=== PATIENT | female | born 1960 | race African-American/Black ===

== ENCOUNTER → 2016-12-16 | Outpatient (CLI) | payer BC ==
[2016-12-16 10:45] LABS: ABSOLUTE EOSINOPHILS # (AUTO) 0.3 10^3/uL (0.0-0.6); ABSOLUTE LYMPHOCYTES (AUTO) 2.4 10^3/uL (0.5-4.7); ABSOLUTE MONOCYTES (AUTO) 0.8 10^3/uL (0.1-1.4); ABSOLUTE NEUT (AUTO) 6.8 10^3/uL (1.7-8.2); BASOPHILS % (AUTO) 0.4 % (0-2); EOSINOPHILS % (AUTO) 2.5 % (0-6); HEMOGLOBIN 13.6 g/dL (12.0-15.5); HGB HCT DIFFERENCE 1.8; LYMPHOCYTES % (AUTO) 23.5 % (13-45); MEAN CORPUSCULAR HEMOGLOBIN 30.3 pg (27.0-33.4); MEAN CORPUSCULAR HGB CONC 34.8 g/dL (32.0-36.0); MEAN CORPUSCULAR VOLUME 87 fl (80-97); MONOCYTES % (AUTO) 7.4 % (3-13); RED BLOOD COUNT 4.48 10^6/uL (3.72-5.28); RED CELL DISTRIBUTION WIDTH 13.9 % (11.5-14.0); SEGMENTED NEUTROPHILS % (AUTO) 66.2 % (42-78); WHITE BLOOD COUNT 10.2 10^3/uL (4.0-10.5)
[2016-12-16 11:07] LABS: ALANINE AMINOTRANSFERASE 28 U/L (9-52); ALBUMIN 4.1 g/dL (3.5-5.0); ALKALINE PHOSPHATASE 78 U/L (38-126); ANION GAP 15 (5-19); ASPARTATE AMINO TRANSFERASE 22 U/L (14-36); BILIRUBIN,DIRECT 0.3 mg/dL (0.0-0.4); BILIRUBIN,TOTAL 0.7 mg/dL (0.2-1.3); BLOOD UREA NITROGEN 11 mg/dL (7-20); CALCIUM 9.2 mg/dL (8.4-10.2); CARBON DIOXIDE 25 mmol/L (22-30); CHLORIDE 109 mmol/L (98-107); CHOLESTEROL 124.23 mg/dL (0-200); CREATININE RESULT 0.58 mg/dL (0.52-1.25); Direct HDL 38 mg/dL (>40); GLUCOSE 101 mg/dL (75-110); MAGNESIUM 2.3 mg/dL (1.6-2.3); POTASSIUM 3.7 mmol/L (3.6-5.0); SODIUM 148.8 mmol/L (137-145); TOTAL PROTEIN 7.3 g/dL (6.3-8.2); TRIGLYCERIDES 85 mg/dL (<150)
[2016-12-16 11:21] LABS: DIRECT LDL 62 mg/dL (<100)
== END ==
LOC: OD 09:41
PROVIDERS: ATTEND Family Medicine
DX: E78.5 Hyperlipidemia, unspecified (principal); E87.6 Hypokalemia; Z79.899 Other long term (current) drug therapy; E55.9 Vitamin D deficiency, unspecified
CPT/HCPCS: 36415; 80053; 80061; 82306; 83735; 84443; 85025

== ENCOUNTER → 2017-06-19 | Outpatient (CLI) | payer BC ==
[2017-06-19 08:49] LABS: ABSOLUTE BASOPHILS # (AUTO) 0.1 10^3/uL (0.0-0.2); ABSOLUTE EOSINOPHILS # (AUTO) 0.2 10^3/uL (0.0-0.6); ABSOLUTE LYMPHOCYTES (AUTO) 2.9 10^3/uL (0.5-4.7); ABSOLUTE MONOCYTES (AUTO) 0.7 10^3/uL (0.1-1.4); ABSOLUTE NEUT (AUTO) 4.9 10^3/uL (1.7-8.2); EOSINOPHILS % (AUTO) 2.3 % (0-6); HEMATOCRIT 38.6 % (36.0-47.0); HEMOGLOBIN 13.3 g/dL (12.0-15.5); HGB HCT DIFFERENCE 1.3; LYMPHOCYTES % (AUTO) 32.5 % (13-45); MEAN CORPUSCULAR HEMOGLOBIN 30.1 pg (27.0-33.4); MEAN CORPUSCULAR HGB CONC 34.6 g/dL (32.0-36.0); MEAN CORPUSCULAR VOLUME 87 fl (80-97); MONOCYTES % (AUTO) 8.1 % (3-13); RED BLOOD COUNT 4.43 10^6/uL (3.72-5.28); RED CELL DISTRIBUTION WIDTH 13.9 % (11.5-14.0); SEGMENTED NEUTROPHILS % (AUTO) 56.1 % (42-78); WHITE BLOOD COUNT 8.8 10^3/uL (4.0-10.5)
[2017-06-19 09:09] LABS: ALANINE AMINOTRANSFERASE 31 U/L (9-52); ALBUMIN 4.2 g/dL (3.5-5.0); ALKALINE PHOSPHATASE 69 U/L (38-126); ANION GAP 11 (5-19); ASPARTATE AMINO TRANSFERASE 21 U/L (14-36); BILIRUBIN,DIRECT 0.3 mg/dL (0.0-0.4); BILIRUBIN,TOTAL 0.7 mg/dL (0.2-1.3); BLOOD UREA NITROGEN 17 mg/dL (7-20); CALCIUM 10.3 mg/dL (8.4-10.2); CARBON DIOXIDE 28 mmol/L (22-30); CHLORIDE 106 mmol/L (98-107); CREATININE RESULT 0.65 mg/dL (0.52-1.25); GLUCOSE 94 mg/dL (75-110); MAGNESIUM 1.8 mg/dL (1.6-2.3); POTASSIUM 4.1 mmol/L (3.6-5.0); SODIUM 144.5 mmol/L (137-145); TOTAL PROTEIN 7.3 g/dL (6.3-8.2)
== END ==
LOC: LAB 08:30
PROVIDERS: ATTEND Family Medicine
DX: E87.6 Hypokalemia (principal); E55.9 Vitamin D deficiency, unspecified; Z79.899 Other long term (current) drug therapy
CPT/HCPCS: 36415; 80053; 82306; 83735; 85025

== ENCOUNTER → 2017-08-07 | Outpatient (CLI) | payer BC ==
--- NOTE | 2017-08-07 10:25 | WOMENS IMAGING REPORT ---
EXAM DESCRIPTION: EMPLOYEE; BONE DENSITY HIP/SPINE COMPLETED DATE/TIME: 08/07/2017 8:41 am REASON FOR STUDY: AGE-RELATED OSTEOPROSIS; M81.0 E28.39 OTHER PRIMARY OVARIAN FAILURE M81.0 AGE-RE LATED OSTEOPOROSIS W/O CURRENT PATHOLOGICAL FRAC COMPARISON: 08/06/2015 TECHNIQUE: Dual-Energy X-ray Absorptiometry (DEXA) of the AP Spine and Hip. LIMITATIONS: None. FINDINGS: LUMBAR SPINE: The bone mineral density (BMD) measured from L1-L4 in the AP projection correlates with a T-score of -1.2, previously -1.5, which is osteopenia as defined by the World Health Organization. HIP: The bone mineral density (BMD) measured in the left hip correlates with a T-score of -1.6, previously -1.4, which is osteopenia as defined by the World Health Organization. IMPRESSION: 1. LUMBAR SPINE: OSTEOPENIA. 2. HIP: OSTEOPENIA. COMMENT: The World Health Organization defines low BMD as follows: T-score: Normal: Greater than -1.0 Osteopenia: Between -1.0 and -2.5 Osteoporosis: Less than -2.5 without fractures Established osteoporosis: Less than -2.5 with fractures In general, you may wish to consider: Diagnosis Treatment Follow-up DEXA Normal BMD Prevention 2-3 years Osteopenia Prevention/Therapy 1-2 years Osteoporosis Therapy Yearly TECHNICAL DOCUMENTATION: JOB ID: [id number] [employer]- All Rights Reserved
== END ==
LOC: WI 08:28
PROVIDERS: ATTEND Internal Medicine Hematology & Oncology
DX: E28.39 Other primary ovarian failure (principal); M81.0 Age-related osteoporosis without current pathological fracture
CPT/HCPCS: 77080

== ENCOUNTER → 2017-12-15 | Outpatient (CLI) | payer BC ==
[2017-12-15 09:27] LABS: ABSOLUTE EOSINOPHILS # (AUTO) 0.2 10^3/uL (0.0-0.6); ABSOLUTE LYMPHOCYTES (AUTO) 2.4 10^3/uL (0.5-4.7); ABSOLUTE MONOCYTES (AUTO) 0.7 10^3/uL (0.1-1.4); ABSOLUTE NEUT (AUTO) 4.7 10^3/uL (1.7-8.2); BASOPHILS % (AUTO) 0.5 % (0-2); EOSINOPHILS % (AUTO) 2.9 % (0-6); HEMATOCRIT 38.6 % (36.0-47.0); HEMOGLOBIN 13.1 g/dL (12.0-15.5); LYMPHOCYTES % (AUTO) 29.4 % (13-45); MEAN CORPUSCULAR HEMOGLOBIN 29.9 pg (27.0-33.4); MEAN CORPUSCULAR HGB CONC 33.9 g/dL (32.0-36.0); MEAN CORPUSCULAR VOLUME 88 fl (80-97); MONOCYTES % (AUTO) 9.1 % (3-13); PLATELET COUNT 355 10^3/uL (150-450); RED BLOOD COUNT 4.38 10^6/uL (3.72-5.28); RED CELL DISTRIBUTION WIDTH 13.9 % (11.5-14.0); SEGMENTED NEUTROPHILS % (AUTO) 58.1 % (42-78); TOTAL CELLS COUNTED % (AUTO) 100 %; WHITE BLOOD COUNT 8.2 10^3/uL (4.0-10.5)
[2017-12-15 09:48] LABS: ALANINE AMINOTRANSFERASE 43 U/L (9-52); ALBUMIN 4.2 g/dL (3.5-5.0); ALKALINE PHOSPHATASE 73 U/L (38-126); ANION GAP 10 (5-19); ASPARTATE AMINO TRANSFERASE 22 U/L (14-36); BILIRUBIN,DIRECT 0.1 mg/dL (0.0-0.4); BILIRUBIN,TOTAL 0.5 mg/dL (0.2-1.3); BLOOD UREA NITROGEN 16 mg/dL (7-20); CALCIUM 9.1 mg/dL (8.4-10.2); CARBON DIOXIDE 26 mmol/L (22-30); CHLORIDE 110 mmol/L (98-107); CHOLESTEROL 138.36 mg/dL (0-200); GLUCOSE 99 mg/dL (75-110); SODIUM 145.5 mmol/L (137-145); TRIGLYCERIDES 76 mg/dL (<150)
[2017-12-15 09:59] LABS: DIRECT LDL 76 mg/dL (<100)
[2017-12-16 05:40] LABS: HEPATITIS C VIRUS AB <0.1 s/co ratio (0.0-0.9)
== END ==
LOC: LAB 09:09
PROVIDERS: ATTEND Family Medicine
DX: E78.5 Hyperlipidemia, unspecified (principal); E87.6 Hypokalemia; Z79.899 Other long term (current) drug therapy; E55.9 Vitamin D deficiency, unspecified; Z11.59 Encounter for screening for other viral diseases
CPT/HCPCS: 36415; 80048; 80061; 80076; 82306; 83735; 84443; 85025; 86803; 86804

== ENCOUNTER → 2018-01-01 | Outpatient (CLI) | payer BC ==
--- NOTE | 2018-01-01 12:14 | RADIOLOGY REPORT (SQ) ---
EXAM DESCRIPTION: CHEST 2 VIEWS COMPLETED DATE/TIME: 01/01/2018 10:54 am REASON FOR STUDY: OTHER CHEST PAIN (R07.89) COMPARISON: 06/19/2013 EXAM PARAMETERS: NUMBER OF VIEWS: two views TECHNIQUE: Digital Frontal and Lateral radiographic views of the chest acquired. RADIATION DOSE: NA LIMITATIONS: none FINDINGS: LUNGS AND PLEURA: No opacities, masses or pneumothorax. No pleural effusion. MEDIASTINUM AND HILAR STRUCTURES: No masses or contour abnormalities. HEART AND VASCULAR STRUCTURES: Heart normal size. No evidence for failure. BONES: No acute findings. HARDWARE: None in the chest. OTHER: No other significant finding. IMPRESSION: NO ACUTE RADIOGRAPHIC FINDING IN THE CHEST. TECHNICAL DOCUMENTATION: JOB ID: [id number] [employer]- All Rights Reserved Reading location - IP/workstation name: [email or web address]
--- NOTE | 2018-01-01 12:15 | RADIOLOGY REPORT (SQ) ---
EXAM DESCRIPTION: HUMERUS RIGHT COMPLETED DATE/TIME: 01/01/2018 10:54 am REASON FOR STUDY: PAIN IN RIGHT UPPER ARM (M79.621) R07.89 OTHER CHEST PAIN M79.621 PAIN IN RIGHT UPPER ARM COMPARISON: None. NUMBER OF VIEWS: Two views. TECHNIQUE: Two radiographic images were acquired of the right humerus to include elbow and shoulder in at least one projection. LIMITATIONS: None. FINDINGS: MINERALIZATION: Normal. BONES: No acute fracture or dislocation. No worrisome bone lesions. SOFT TISSUES: No obvious swelling or foreign body. OTHER: No other significant finding. IMPRESSION: NEGATIVE STUDY OF THE RIGHT HUMERUS. NO RADIOGRAPHIC EVIDENCE OF ACUTE INJURY. TECHNICAL DOCUMENTATION: JOB ID: [id number] [employer]- All Rights Reserved Reading location - IP/workstation name: [email or web address]
--- NOTE | 2018-01-01 12:15 | RADIOLOGY REPORT (SQ) ---
EXAM DESCRIPTION: RIBS RIGHT W/O PA CHEST COMPLETED DATE/TIME: 01/01/2018 10:54 am REASON FOR STUDY: OTHER CHEST PAIN (R07.89) R07.89 OTHER CHEST PAIN M79.621 PAIN IN RIGHT UPPER AR M COMPARISON: None. NUMBER OF VIEWS: Four views. TECHNIQUE: Images acquired of the right ribs in the area of focal concern. LIMITATIONS: None. FINDINGS: RIBS: No acute displaced fracture. No worrisome bone lesions. LUNGS: Limited exam. No obvious pneumothorax. No pleural effusion. OTHER: No other significant finding. IMPRESSION: NO ACUTE DISPLACED RIB FRACTURE. COMMENT: SITE OF TRAUMA/COMPLAINT MARKED/STAMP COMPLETED: NO. TECHNICAL DOCUMENTATION: JOB ID: [id number] [employer]- All Rights Reserved Reading location - IP/workstation name: [email or web address]
--- NOTE | 2018-01-01 12:18 | RADIOLOGY REPORT (SQ) ---
EXAM DESCRIPTION: SHOULDER RIGHT 2 OR MORE VIEWS COMPLETED DATE/TIME: 01/01/2018 10:54 am REASON FOR STUDY: PAIN IN RIGHT UPPER ARM (M79.621) R07.89 OTHER CHEST PAIN M79.621 PAIN IN RIGHT UPPER ARM COMPARISON: None. NUMBER OF VIEWS: Three views. TECHNIQUE: Internal rotation, external rotation, and Y view images acquired of the right shoulder. LIMITATIONS: None. FINDINGS: MINERALIZATION: Normal. BONES: No acute fracture or dislocation. No worrisome bone lesions. JOINTS: No dislocation. VISUALIZED LUNGS AND RIBS: No pneumothorax. No rib fracture. SOFT TISSUES: No radiopaque foreign body. OTHER: No other significant finding. IMPRESSION: NEGATIVE STUDY OF THE RIGHT SHOULDER. NO RADIOGRAPHIC EVIDENCE OF ACUTE INJURY. TECHNICAL DOCUMENTATION: JOB ID: [id number] [employer]- All Rights Reserved Reading location - IP/workstation name: [email or web address]
== END ==
LOC: RAD 10:00
PROVIDERS: ATTEND Family Medicine
DX: R07.89 Other chest pain (principal); M79.621 Pain in right upper arm
CPT/HCPCS: 71046

== ENCOUNTER 2018-02-10 11:59 | Emergency (ER) | payer BC ==
[2018-02-10 14:42] LABS: BACTERIA (WET MOUNT) 3+ BACTERIA SEEN; RBCS (WET MOUNT) NO RBCS SEEN; T.VAGINALIS (WET MOUNT) NO TRICHOMONAS SEEN; WBCS (WET MOUNT) FEW WBCS SEEN; YEAST (WET MOUNT) NO YEAST SEEN
[2018-02-10] MEDS ORDERED: FAMOTIDINE 20 MG TABLET PO ONE (15:22)
[2018-02-10] MEDS ORDERED: PREDNISONE 20 MG TABLET PO ONE (15:22)
--- NOTE | 2018-02-10 15:27 | ER Document Report ---
ED GI/ - General Chief Complaint: Vaginal Itching Stated Complaint: VAGINAL PAIN Time Seen by Provider: 02/10/18 13:31 Mode of Arrival: Ambulatory Information source: Patient Notes: 57-year-old female presents to ED for complaint of itching to the vaginal area plus total body itching. Patient is alert oriented speaking full sentences respirations regular and unlabored walks with a even steady gait. TRAVEL OUTSIDE OF THE [place] IN LAST 30 DAYS: No - HPI Patient complains to provider of: Other - Vaginal itching and irritation with itching to the arms and legs Onset: Other - We days ago Timing/Duration: Persistent Quality of pain: No pain - Itching Pain Level: Denies Vaginal bleeding (Compared to normal period): None Associated symptoms: Other - Vaginal itching and irritation as well as itching to the arms and legs Exacerbated by: Denies Relieved by: Denies Similar symptoms previously: No Recently seen / treated by doctor: No - Related Data Allergies/Adverse Reactions: codeine [Codeine] Allergy (Severe, Verified 02/10/18 12:00) N&V Past Medical History - General Information source: Patient - Social History Smoking Status: Current Every Day Smoker Cigarette use (# per day): Yes - 15 cig a day Chew tobacco use (# tins/day): No Smoking Education Provided: Yes - 4 min Frequency of alcohol use: Occasional Drug Abuse: None Occupation: [employer] Lives with: Alone Family History: Reviewed & Not Pertinent Patient has suicidal ideation: No Patient has homicidal ideation: No - Past Medical History Cardiac Medical History: Reports: Hx Hypertension - Dx 2010 Pulmonary Medical History: Reports: None EENT Medical History: Reports: None Neurological Medical History: Reports: None Endocrine Medical History: Reports: None Renal/ Medical History: Reports: None Malignancy Medical History: Reports: Hx Breast Cancer - right GI Medical History: Reports: None Musculoskeltal Medical History: Reports Hx Arthritis - Carpal tunnel syndrome oj wrists Skin Medical History: Reports None Psychiatric Medical History: Reports: None Traumatic Medical History: Reports: None Past Surgical History: Reports: Hx Mastectomy - right Review of Systems - Review of Systems Constitutional: No symptoms reported EENT: No symptoms reported Cardiovascular: No symptoms reported Respiratory: No symptoms reported Gastrointestinal: No symptoms reported Genitourinary: No symptoms reported Female Genitourinary: Other - Vaginal itching Musculoskeletal: No symptoms reported Skin: Other - Itching to arms legs and pelvic area Hematologic/Lymphatic: No symptoms reported Neurological/Psychological: No symptoms reported -: Yes All other systems reviewed and negative Physical Exam - Vital signs Vitals: Temp Pulse Resp BP Pulse Ox 98.6 F 64 16 121/66 96 02/10/18 12:10 02/10/18 12:10 02/10/18 12:10 02/10/18 12:10 02/10/18 12:10 Interpretation: Normal - General General appearance: Appears well, Alert - HEENT Head: Normocephalic, Atraumatic Eyes: Normal Pupils: PERRL - Respiratory Respiratory status: No respiratory distress Chest status: Nontender Breath sounds: Normal Chest palpation: Normal - Cardiovascular Rhythm: Regular Heart sounds: Normal auscultation Murmur: No - Abdominal Inspection: Normal Distension: No distension Bowel sounds: Normal Tenderness: Nontender Organomegaly: No organomegaly - Genitourinary External exam: Normal Speculum exam: Normal Vaginal bleeding: None Bimanuel exam: Normal - Back Back: Normal, Nontender - Extremities General upper extremity: Normal inspection, Nontender, Normal color, Normal ROM , Normal temperature General lower extremity: Normal inspection, Nontender, Normal color, Normal ROM , Normal temperature, Normal weight bearing. No: Bernadette's sign - Neurological Neuro grossly intact: Yes Cognition: Normal Orientation: AAOx4 War Coma Scale Eye Opening: Spontaneous War Coma Scale Verbal: Oriented War Coma Scale Motor: Obeys Commands War Coma Scale Total: 15 Speech: Normal Motor strength normal: LUE, RUE, LLE, RLE Sensory: Normal - Psychological Associated symptoms: Normal affect, Normal mood - Skin Skin Temperature: Warm Skin Moisture: Dry Skin Color: Normal Character of irregularity: Fine - Fine rash to arms legs patient complaining of itching to the vaginal area arms legs and pelvic area, Urticarial Course - Re-evaluation Re-evalutation: 02/10/18 15:39 Pelvic exam negative no discharge noted no rash. wet mount negative, patient continually scratching arms and legs. Patient treated with prednisone, Pepcid, and instructed on use of benadryl at home. 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 Patient sent home with prescription for benadryl and Pepcid. Patient verbalized understanding of patient instruction and agreement with treatment plan. GC and chlamydia test not returned on discharge, patient was offered Rocephin and azithromycin but stated she did not think there was any chance and would rather not have antibiotics. - Vital Signs Vital signs: Temp Pulse Resp BP Pulse Ox 98.6 F 64 16 121/66 96 02/10/18 12:10 02/10/18 12:10 02/10/18 12:10 02/10/18 12:10 02/10/18 12:10 Discharge - Discharge Clinical Impression: Vaginal irritation Allergic reaction Qualifiers: Encounter type: initial encounter Qualified Code(s): T78.40XA - Allergy, unspecified, initial encounter Condition: Stable Disposition: HOME, SELF-CARE Instructions: Stop Smoking ([facility]) Additional Instructions: ACUTE ALLERGIC REACTION: Your symptoms are due to an allergic reaction. Allergy can cause hives, swelling of the hands, feet, and face, hoarseness, and difficulty swallowing or breathing. It may be due to exposure to medication, animal dander, foods, infection, or insect bites. Medication is a common cause, even when prior use of this same medication caused no problems. Acute treatment may include adrenalin and antihistamines. Usually, the specific allergic agent can't be identified unless repeated episodes occur. Home treatment includes the following: (1) Stop any suspicious medications. This will be discussed with you. (2) Oral antihistamines for the next four to five days. Example, diphenhydramine (Benadryl) every four hours. (3) You may also use cimetidine (Tagamet), ranitidine (Zantac), or famotidine ( Pepcid) every four hours if diphenhydramine is not controlling itching and hives. (4) Avoid aspirin until the hives completely disappear. (5) Avoid hot baths or showers until the hives are completely gone. Call the doctor if faintness, difficulty swallowing, tightness in the chest , or wheezing occurs. STEROID MEDICATION: You have been given a medicine of the cortisone/steroid class. This medication is used to control inflammation or allergy. It is usually only given for a short period of time, until the acute process subsides. There are usually no side effects from short-term use of cortisone-like medications. Some persons feel an increased sense of well-being and are not sleepy at bedtime. Long-term use of cortisone medications is best avoided, unless required for a severe condition. If your condition does not remit, or relapses after the course of corticosteroid medication, you should consult your physician. ACID-SUPPRESSING MEDICATION: You have a prescription for medicine which reduces the stomach's secretion of acid. Examples include Zantac, Tagament, and Pepcid. These drugs are often used to allow healing of ulcers or esophagitis. They may be needed to prevent recurrence of ulcers in some patients, or to prevent damage from acid reflux in the esophagus. Take all medication as prescribed, even after the pain is gone. Regular antacids may be added as needed if you have symptoms while taking this medicine. These medications sometimes are prescribed for allergic reactions because they have anti-histaminic effects and relieve the rash and itching of the reaction. There are usually no side effects from this medication. But, in rare cases and particularly in the elderly, serious problems can occur. Contact your doctor if there is fever, rash, hallucinations, confusion, or unusual bruising. Contact your doctor at once if you develop lightheadedness, black or bloody stool, or bloody vomitus. USE OF DIPHENHYDRAMINE: The use of diphenhydramine (Benadryl) has been recommended to control allergic symptoms. The 25 mg strength is available over- the-counter, as well as the elixir. This antihistamine is used for many symptoms. It's useful for itching, watering eyes and nose, allergic swelling, hives, and insect stings. The medication can be repeated four times daily. Age Elixir (12.5 mg/tsp) 25 mg pill 2-3 yr 1/2 tsp 4-8 yr 1 tsp 9-14 yr 2 tsp one tab adult 1-2 tabs Antihistamines may cause drowsiness, especially with the first dose. Do not operate machinery or drive while under the effects of the medication. Do not combine the medication with alcohol, or with any other medication without talking to your doctor. FOLLOW-UP CARE: If you have been referred to a physician for follow-up care, call the physician s office for an appointment as you were instructed or within the next two days. If you experience worsening or a significant change in your symptoms, notify the physician immediately or return to the Emergency Department at any time for re-evaluation. Prescriptions: Famotidine [Pepcid 20 mg Tablet] 20 mg PO BID #12 tablet Prednisone [Deltasone 20 mg Tablet] 3 tab PO DAILY 5 Days tablet Forms: Return to Work Referrals: WES GARZA MD [Primary Care Provider] - Follow up as needed
[2018-02-10 15:47] VITALS: BP 140/89
[2018-02-10 16:09] LABS: CHLAM PCR NOT DETECTED (NOT DETECT); GON PCR NOT DETECTED (NOT DETECT)
== END 2018-02-10 15:44 | disposition home or self-care (01) ==
LOC: ER 11:59
DX: R10.2 Pelvic and perineal pain (principal); T78.40XA Allergy, unspecified, initial encounter; X58.XXXA Exposure to other specified factors, initial encounter; L29.9 Pruritus, unspecified; I10 Essential (primary) hypertension; F17.210 Nicotine dependence, cigarettes, uncomplicated; Z71.6 Tobacco abuse counseling; Z85.3 Personal history of malignant neoplasm of breast; Z88.5 Allergy status to narcotic agent
CPT/HCPCS: 99283; 87210; 87491; 87591; J7512

== ENCOUNTER → 2018-07-11 | Outpatient (CLI) | payer BC ==
[2018-07-11 09:54] LABS: ABSOLUTE EOSINOPHILS # (AUTO) 0.1 10^3/uL (0.0-0.6); ABSOLUTE LYMPHOCYTES (AUTO) 2.6 10^3/uL (0.5-4.7); ABSOLUTE MONOCYTES (AUTO) 0.7 10^3/uL (0.1-1.4); ABSOLUTE NEUT (AUTO) 5.5 10^3/uL (1.7-8.2); BASOPHILS % (AUTO) 0.4 % (0-2); EOSINOPHILS % (AUTO) 1.6 % (0-6); HEMATOCRIT 37.2 % (36.0-47.0); HEMOGLOBIN 12.9 g/dL (12.0-15.5); LYMPHOCYTES % (AUTO) 28.7 % (13-45); MEAN CORPUSCULAR HEMOGLOBIN 30.2 pg (27.0-33.4); MEAN CORPUSCULAR HGB CONC 34.8 g/dL (32.0-36.0); MEAN CORPUSCULAR VOLUME 87 fl (80-97); MONOCYTES % (AUTO) 7.8 % (3-13); PLATELET COUNT 354 10^3/uL (150-450); RED BLOOD COUNT 4.29 10^6/uL (3.72-5.28); SEGMENTED NEUTROPHILS % (AUTO) 61.5 % (42-78); TOTAL CELLS COUNTED % (AUTO) 100 %
[2018-07-11 10:56] LABS: ALANINE AMINOTRANSFERASE 21 U/L (9-52); ALKALINE PHOSPHATASE 67 U/L (38-126); ANION GAP 10 (5-19); ASPARTATE AMINO TRANSFERASE 23 U/L (14-36); BILIRUBIN,DIRECT 0.2 mg/dL (0.0-0.4); BILIRUBIN,TOTAL 0.5 mg/dL (0.2-1.3); BLOOD UREA NITROGEN 14 mg/dL (7-20); CALCIUM 9.1 mg/dL (8.4-10.2); CARBON DIOXIDE 25 mmol/L (22-30); CHLORIDE 108 mmol/L (98-107); CHOLESTEROL 132.59 mg/dL (0-200); GLUCOSE 104 mg/dL (75-110); POTASSIUM 4.1 mmol/L (3.6-5.0); SODIUM 142.8 mmol/L (137-145); TOTAL PROTEIN 7.3 g/dL (6.3-8.2); TRIGLYCERIDES 69 mg/dL (<150)
[2018-07-11 11:07] LABS: DIRECT LDL 75 mg/dL (<100)
[2018-07-11 18:12] LABS: FREE T3 3.84 pg/mL (2.77-5.27); FREE T4 (FREE THYROXINE) 1.53 ng/dL (0.78-2.19)
== END ==
LOC: OD 08:54
PROVIDERS: ATTEND Family Medicine
DX: E05.90 Thyrotoxicosis, unspecified without thyrotoxic crisis or storm (principal); R73.01 Impaired fasting glucose; E78.5 Hyperlipidemia, unspecified; E55.9 Vitamin D deficiency, unspecified; Z79.899 Other long term (current) drug therapy
CPT/HCPCS: 36415; 80053; 80061; 82306; 83036; 84439; 84443; 84481; 85025

== ENCOUNTER → 2019-01-07 | Outpatient (CLI) | payer BC ==
[2019-01-07 10:46] LABS: ABSOLUTE EOSINOPHILS # (AUTO) 0.1 10^3/uL (0.0-0.6); ABSOLUTE LYMPHOCYTES (AUTO) 2.9 10^3/uL (0.5-4.7); ABSOLUTE MONOCYTES (AUTO) 0.7 10^3/uL (0.1-1.4); BASOPHILS % (AUTO) 0.2 % (0-2); EOSINOPHILS % (AUTO) 1.1 % (0-6); HEMATOCRIT 37.8 % (36.0-47.0); HEMOGLOBIN 13.1 g/dL (12.0-15.5); MEAN CORPUSCULAR HEMOGLOBIN 29.7 pg (27.0-33.4); MEAN CORPUSCULAR HGB CONC 34.6 g/dL (32.0-36.0); MEAN CORPUSCULAR VOLUME 86 fl (80-97); MONOCYTES % (AUTO) 8.9 % (3-13); PLATELET COUNT 340 10^3/uL (150-450); RED CELL DISTRIBUTION WIDTH 13.4 % (11.5-14.0); SEGMENTED NEUTROPHILS % (AUTO) 51.8 % (42-78); TOTAL CELLS COUNTED % (AUTO) 100 %; WHITE BLOOD COUNT 7.8 10^3/uL (4.0-10.5)
[2019-01-07 11:08] LABS: ALANINE AMINOTRANSFERASE 16 U/L (9-52); ALKALINE PHOSPHATASE 106 U/L (38-126); ANION GAP 8 (5-19); ASPARTATE AMINO TRANSFERASE 22 U/L (14-36); BILIRUBIN,DIRECT 0.3 mg/dL (0.0-0.4); BILIRUBIN,TOTAL 0.7 mg/dL (0.2-1.3); BLOOD UREA NITROGEN 13 mg/dL (7-20); CARBON DIOXIDE 26 mmol/L (22-30); CHLORIDE 109 mmol/L (98-107); CHOLESTEROL 136.23 mg/dL (0-200); CREATINE KINASE 50 U/L (30-135); GLUCOSE 97 mg/dL (75-110); POTASSIUM 3.7 mmol/L (3.6-5.0); SODIUM 142.5 mmol/L (137-145); TOTAL PROTEIN 7.4 g/dL (6.3-8.2); TRIGLYCERIDES 126 mg/dL (<150)
[2019-01-07 11:19] LABS: DIRECT LDL 86 mg/dL (<100)
== END ==
LOC: OD 09:49
PROVIDERS: ATTEND Family Medicine
DX: E78.5 Hyperlipidemia, unspecified (principal); E87.6 Hypokalemia; E55.9 Vitamin D deficiency, unspecified; C50.911 Malignant neoplasm of unspecified site of right female breast; R73.09 Other abnormal glucose
CPT/HCPCS: 36415; 80053; 80061; 82306; 82550; 83036; 83735; 84443; 85025

== ENCOUNTER → 2019-06-03 | Outpatient (CLI) | payer BC ==
[2019-06-03 11:02] LABS: ABSOLUTE EOSINOPHILS # (AUTO) 0.1 10^3/uL (0.0-0.6); ABSOLUTE LYMPHOCYTES (AUTO) 2.2 10^3/uL (0.5-4.7); ABSOLUTE MONOCYTES (AUTO) 0.8 10^3/uL (0.1-1.4); BASOPHILS % (AUTO) 0.3 % (0-2); EOSINOPHILS % (AUTO) 1.3 % (0-6); HEMOGLOBIN 12.7 g/dL (12.0-15.5); LYMPHOCYTES % (AUTO) 24.1 % (13-45); MEAN CORPUSCULAR HEMOGLOBIN 29.7 pg (27.0-33.4); MEAN CORPUSCULAR HGB CONC 34.5 g/dL (32.0-36.0); MEAN CORPUSCULAR VOLUME 86 fl (80-97); MONOCYTES % (AUTO) 8.4 % (3-13); PLATELET COUNT 334 10^3/uL (150-450); RED BLOOD COUNT 4.29 10^6/uL (3.72-5.28); RED CELL DISTRIBUTION WIDTH 13.9 % (11.5-14.0); SEGMENTED NEUTROPHILS % (AUTO) 65.9 % (42-78); TOTAL CELLS COUNTED % (AUTO) 100 %; WHITE BLOOD COUNT 9.1 10^3/uL (4.0-10.5)
[2019-06-03 11:26] LABS: ALBUMIN 4.1 g/dL (3.5-5.0); ALKALINE PHOSPHATASE 122 U/L (38-126); ANION GAP 11 (5-19); ASPARTATE AMINO TRANSFERASE 23 U/L (14-36); BILIRUBIN,DIRECT 0.2 mg/dL (0.0-0.4); BILIRUBIN,TOTAL 0.7 mg/dL (0.2-1.3); BLOOD UREA NITROGEN 14 mg/dL (7-20); CARBON DIOXIDE 25 mmol/L (22-30); CHLORIDE 106 mmol/L (98-107); CHOLESTEROL 125.22 mg/dL (0-200); GLUCOSE 99 mg/dL (75-110); POTASSIUM 3.8 mmol/L (3.6-5.0); TOTAL PROTEIN 7.3 g/dL (6.3-8.2); TRIGLYCERIDES 100 mg/dL (<150)
[2019-06-03 11:37] LABS: DIRECT LDL 76 mg/dL (<100)
== END ==
LOC: OD 10:11
PROVIDERS: ATTEND Family Medicine
DX: I10 Essential (primary) hypertension (principal); E78.5 Hyperlipidemia, unspecified; R73.01 Impaired fasting glucose; E55.9 Vitamin D deficiency, unspecified; E87.6 Hypokalemia; Z85.3 Personal history of malignant neoplasm of breast
CPT/HCPCS: 36415; 80053; 80061; 82306; 83036; 83735; 84443; 85025

== ENCOUNTER → 2019-08-08 | Outpatient (CLI) | payer BC ==
--- NOTE | 2019-08-08 09:44 | WOMENS IMAGING REPORT ---
EXAM DESCRIPTION: BONE DENSITY HIP/SPINE COMPLETED DATE/TIME: 08/08/2019 9:14 am REASON FOR STUDY: M81.0 M81.0 AGE-RELATED OSTEOPOROSIS W/O CURRENT PATHOLOGICAL FRAC COMPARISON: 08/07/2017 TECHNIQUE: Dual-Energy X-ray Absorptiometry (DEXA) of the AP Spine and Hip. LIMITATIONS: None. FINDINGS: LUMBAR SPINE: The bone mineral density (BMD) measured from L1-L4 in the AP projection correlates with a T-score of -1.5, which is osteopenia as defined by the World Health Organization. There is been a +2.5% change from baseline. HIP: The bone mineral density (BMD) measured in the left hip correlates with a T-score of -1.8, which is o steopenia as defined by the World Health Organization. There has been a -12.9% change from baseline. IMPRESSION: 1. LUMBAR SPINE: OSTEOPENIA. 2. HIP: OSTEOPENIA. COMMENT: The World Health Organization defines low BMD as follows: T-score: Normal: Greater than -1.0 Osteopenia: Between -1.0 and -2.5 Osteoporosis: Less than -2.5 without fractures Established osteoporosis: Less than -2.5 with fractures In general, you may wish to consider: Diagnosis Treatment Follow-up DEXA Normal BMD Prevention 2-3 years Osteopenia Prevention/Therapy 1-2 years Osteoporosis Therapy Yearly TECHNICAL DOCUMENTATION: JOB ID: [id number]- All Rights Reserved Reading location - IP/workstation name: [email or web address]
== END ==
LOC: WI 08:37
PROVIDERS: ATTEND Physician Assistant Medical
DX: M85.88 Other specified disorders of bone density and structure, other site (principal)
CPT/HCPCS: 77080

== ENCOUNTER → 2020-01-07 | Outpatient (CLI) | payer BC ==
--- NOTE | 2020-01-07 09:31 | RADIOLOGY REPORT (SQ) ---
EXAM DESCRIPTION: CHEST PA/LATERAL IMAGES COMPLETED DATE/TIME: 01/07/2020 9:23 am REASON FOR STUDY: DORSALGIA, UNSPECIFIED COMPARISON: 01/01/2018 EXAM PARAMETERS: NUMBER OF VIEWS: two views TECHNIQUE: Digital Frontal and Lateral radiographic views of the chest acquired. RADIATION DOSE: NA LIMITATIONS: none FINDINGS: LUNGS AND PLEURA: No opacities, masses or pneumothorax. No pleural effusion. MEDIASTINUM AND HILAR STRUCTURES: No masses or contour abnormalities. HEART AND VASCULAR STRUCTURES: Heart normal size. No evidence for failure. BONES: No acute findings. HARDWARE: None in the chest. OTHER: No other significant finding. IMPRESSION: NO SIGNIFICANT RADIOGRAPHIC FINDING IN THE CHEST. TECHNICAL DOCUMENTATION: JOB ID: [id number] 2010 [employer]- All Rights Reserved Reading location - IP/workstation name: [email or web address]
--- NOTE | 2020-01-07 09:33 | RADIOLOGY REPORT (SQ) ---
EXAM DESCRIPTION: RIBS RIGHT W/O PA CHEST IMAGES COMPLETED DATE/TIME: 01/07/2020 9:23 am REASON FOR STUDY: DORSALGIA, UNSPECIFIED E78.5 HYPERLIPIDEMIA, UNSPECIFIED E55.9 VITAMIN D DEFICIE NCY, UNSPECIFIED R73.01 IMPAIRED FASTING GLUCOSE COMPARISON: None. NUMBER OF VIEWS: Five views. TECHNIQUE: Images acquired of the right ribs in the area of focal concern. LIMITATIONS: None. FINDINGS: RIBS: The study demonstrates a mild displaced right anterolateral 8th rib fracture. LUNGS: Limited exam. No obvious pneumothorax. No pleural effusion. OTHER: No other significant finding. IMPRESSION: Mild displaced right anterolateral 8th rib fracture. COMMENT: SITE OF TRAUMA/COMPLAINT MARKED/STAMP COMPLETED: YES. TECHNICAL DOCUMENTATION: JOB ID: [id number] 2010 [employer]- All Rights Reserved Reading location - IP/workstation name: [email or web address]
[2020-01-07 09:59] LABS: ALKALINE PHOSPHATASE 90 U/L (38-126); ANION GAP 5 (5-19); ASPARTATE AMINO TRANSFERASE 24 U/L (14-36); BILIRUBIN,TOTAL 0.4 mg/dL (0.2-1.3); BLOOD UREA NITROGEN 13 mg/dL (7-20); CALCIUM 9.3 mg/dL (8.4-10.2); CARBON DIOXIDE 25 mmol/L (22-30); CHLORIDE 111 mmol/L (98-107); CHOLESTEROL 129.76 mg/dL (0-200); GLUCOSE 109 mg/dL (75-110); TOTAL PROTEIN 7.3 g/dL (6.3-8.2); TRIGLYCERIDES 77 mg/dL (<150)
[2020-01-07 10:10] LABS: DIRECT LDL 76 mg/dL (<100)
== END ==
LOC: OD 08:44
PROVIDERS: ATTEND Family Medicine
DX: E78.5 Hyperlipidemia, unspecified (principal); R73.01 Impaired fasting glucose; E55.9 Vitamin D deficiency, unspecified; M54.9 Dorsalgia, unspecified
CPT/HCPCS: 36415; 71046; 80053; 80061; 82306; 83036

== ENCOUNTER → 2020-05-29 | Outpatient (CLI) | payer BC ==
[2020-05-29 10:12] LABS: ABSOLUTE EOSINOPHILS # (AUTO) 0.2 10^3/uL (0.0-0.6); ABSOLUTE LYMPHOCYTES (AUTO) 2.6 10^3/uL (0.5-4.7); ABSOLUTE MONOCYTES (AUTO) 0.8 10^3/uL (0.1-1.4); ABSOLUTE NEUT (AUTO) 4.6 10^3/uL (1.7-8.2); BASOPHILS % (AUTO) 0.5 % (0-2); HEMATOCRIT 36.2 % (36.0-47.0); HEMOGLOBIN 12.8 g/dL (12.0-15.5); LYMPHOCYTES % (AUTO) 31.6 % (13-45); MEAN CORPUSCULAR HEMOGLOBIN 30.4 pg (27.0-33.4); MEAN CORPUSCULAR HGB CONC 35.3 g/dL (32.0-36.0); MEAN CORPUSCULAR VOLUME 86 fl (80-97); MONOCYTES % (AUTO) 9.8 % (3-13); PLATELET COUNT 354 10^3/uL (150-450); RED BLOOD COUNT 4.19 10^6/uL (3.72-5.28); RED CELL DISTRIBUTION WIDTH 14.8 % (11.5-14.0); SEGMENTED NEUTROPHILS % (AUTO) 56.1 % (42-78); TOTAL CELLS COUNTED % (AUTO) 100 %; WHITE BLOOD COUNT 8.1 10^3/uL (4.0-10.5)
[2020-05-29 10:38] LABS: ALBUMIN 4.2 g/dL (3.5-5.0); ALKALINE PHOSPHATASE 97 U/L (38-126); ANION GAP 10 (5-19); ASPARTATE AMINO TRANSFERASE 22 U/L (14-36); BILIRUBIN,DIRECT 0.3 mg/dL (0.0-0.4); BILIRUBIN,TOTAL 0.7 mg/dL (0.2-1.3); BLOOD UREA NITROGEN 12 mg/dL (7-20); CALCIUM 9.4 mg/dL (8.4-10.2); CARBON DIOXIDE 25 mmol/L (22-30); CHLORIDE 108 mmol/L (98-107); CHOLESTEROL 136.23 mg/dL (0-200); GLUCOSE 99 mg/dL (75-110); POTASSIUM 3.9 mmol/L (3.6-5.0); TOTAL PROTEIN 7.3 g/dL (6.3-8.2); TRIGLYCERIDES 94 mg/dL (<150)
[2020-05-29 10:48] LABS: DIRECT LDL 77 mg/dL (<100)
== END ==
LOC: OD 09:34
PROVIDERS: ATTEND Family Medicine
DX: E87.6 Hypokalemia (principal); Z13.6 Encounter for screening for cardiovascular disorders; Z13.1 Encounter for screening for diabetes mellitus; Z13.0 Encounter for screening for diseases of the blood and blood-forming organs and certain disorders involving the immune mechanism; R73.01 Impaired fasting glucose
CPT/HCPCS: 36415; 80053; 80061; 83036; 83735; 85025